=== PATIENT | female | born 1955 | race Hispanic/Latino ===

== ENCOUNTER → 2018-03-25 | Day surgery (SDC) | payer OTHER ==
[~2018-03-25] MED LIST: FENTANYL CITRATE/PF 100MCG/2 ML INJ ONE; HYOSCYAMINE SULFATE 0.5 MG/ML INJ ONE; LEXAPRO10 MG PO; MIDAZOLAM HCL 2 MG/2 ML VIAL ONE; PROPOFOL IV EMULSION 10 MG/ML 50 ML VIAL ONE; Z.0.LEXAPRO20 MG PO
--- OUTSIDE RECORDS SUMMARY | 2018-03-25 05:52 | XMS REPORT ---
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 Allergies, Adverse Reactions, Alerts This patient has no known allergies or adverse reactions. Medications This patient has no known medications.
[2018-03-25 09:13] VITALS: BP 109/79
--- NOTE | 2018-03-25 09:40 | Operative Report ---
DATE OF PROCEDURE: March 25, 2018 REFERRING PHYSICIAN: Dr. Frieda Reynolds PROCEDURE PERFORMED: Colonoscopy and polypectomy. INDICATIONS FOR COLONOSCOPY: Surveillance colonoscopy, personal history of colon polyps, right lower quadrant pain. MEDICATION: Patient was done under MAC. Please see anesthesiologist's note. PROCEDURE: With the patient in the left lateral decubitus position, the flexible fiberoptic Olympus colonoscope was inserted into the rectum with ease and advanced all the way to the cecum. Mucosa overlying the cecum appeared to be within normal limits. The ileocecal was intubated and the scope was advanced into the terminal ileum. Biopsies were obtained to rule out an inflammatory pathology potentially inducing her right lower quadrant pain. The scope was then withdrawn back into the colon. It was then withdrawn slowly. Mucosa overlying the ascending and transverse appeared to be within normal limits. Diverticular disease was noted to involve the descending and the sigmoid. One polyp was hot biopsied from the descending and 1 polyp was hot biopsied from the rectum. The scope was then retroflexed into the distal rectum and moderate size internal hemorrhoids were noted, none of which was actively bleeding. The scope was then straightened out. It was subsequently withdrawn. Patient tolerated the procedure well. IMPRESSION 1. Diverticulosis. 2. Descending colon polyp, hot biopsied. 3. Rectal polyp, hot biopsied. 4. Internal hemorrhoids, none actively bleeding. PLAN: Follow up histology. Initiate high-fiber and low-fat diet. Initiate high-fiber supplement. If terminal ileum biopsies were negative, then the patient will need a CT scan of the abdomen and pelvis. Job#: [id number] RI cc:FRIEDA REYNOLDS MD
== END | disposition home or self-care (01) ==
LOC: OR 05:50
PROVIDERS: ATTEND Internal Medicine Gastroenterology
DX: K52.9 Noninfective gastroenteritis and colitis, unspecified (principal); K63.5 Polyp of colon; K62.1 Rectal polyp; K57.30 Diverticulosis of large intestine without perforation or abscess without bleeding; K64.8 Other hemorrhoids; Z01.810 Encounter for preprocedural cardiovascular examination; F32.9 Major depressive disorder, single episode, unspecified; F41.9 Anxiety disorder, unspecified
CPT/HCPCS: 45380; 45384; 93005; J1980; J2250; 45378

== ENCOUNTER → 2019-01-12 | Outpatient (CLI) | payer OTHER ==
[~2019-01-12] MED LIST changes: +DIATRIZOATE MEGL/DIATRIZOA SOD 30 ML BTL PO ONE; -FENTANYL CITRATE/PF 100MCG/2 ML INJ ONE; -HYOSCYAMINE SULFATE 0.5 MG/ML INJ ONE; +IOPAMIDOL 370 MG/ML 200 ML INFUS..BTL INJ ONE; -MIDAZOLAM HCL 2 MG/2 ML VIAL ONE; -PROPOFOL IV EMULSION 10 MG/ML 50 ML VIAL ONE; +SODIUM CHLORIDE 0.9% 50ML 50 ML ONE
[2019-01-12 17:53] LABS: CREATININE, SERUM 1.02 mg/dL (0.57-1.11)
--- NOTE | 2019-01-13 09:04 | Diagnostic Imaging Report ---
EXAM: CT Abdomen and Pelvis WITH intravenous contrast INDICATION: Lower abdominal pain, history of diverticulitis COMPARISON: None. TECHNIQUE: Abdomen and pelvis were scanned utilizing a multidetector helical scanner from the lung base to the pubic symphysis after administration of IV contrast. Coronal and sagittal reformations were obtained. Routine protocol was performed. Scan was performed during portal venous phase. IV CONTRAST: 100mL of Isovue 370 ORAL CONTRAST: Gastrografin RADIATION DOSE: Total DLP: 271.2 mGy*cm Dose modulation, iterative reconstruction, and/or weight based adjustment of the mA/kV was utilized to reduce the radiation dose to as low as reasonably achievable. FINDINGS: LOWER THORAX: Normal. HEPATOBILIARY: Mild diffuse hepatic steatosis. No focal liver lesion. No biliary ductal dilation. Normal gallbladder. SPLEEN: No splenomegaly. PANCREAS: No focal masses or ductal dilatation. ADRENALS: No adrenal nodules. KIDNEYS/URETERS: No hydronephrosis, stones, or solid mass lesions. PELVIC ORGANS/BLADDER: Unremarkable. PERITONEUM / RETROPERITONEUM: No free air or fluid. LYMPH NODES: No lymphadenopathy. VESSELS: Unremarkable. GI TRACT: Descending and sigmoid colon diverticulosis with no CT evidence of diverticulitis. No abnormal bowel wall thickening. No bowel obstruction. Normal appendix. BONES AND SOFT TISSUES: No acute fracture or dislocation. No suspicious lytic or blastic lesions. Minimal grade 1 anterolisthesis at L4-5. IMPRESSION: Diverticulosis with no CT evidence of diverticulitis. Hepatic steatosis. Signed by: Cade Phillips MD on 01/13/2019 9:00 AM
== END ==
LOC: CT 17:05
PROVIDERS: ATTEND Internal Medicine Gastroenterology
DX: R10.32 Left lower quadrant pain (principal)
CPT/HCPCS: 36415; 74177; 82565; 84520; Q9967

== ENCOUNTER → 2019-07-20 | Outpatient (CLI) | payer OTHER ==
[~2019-07-20] MED LIST changes: -DIATRIZOATE MEGL/DIATRIZOA SOD 30 ML BTL PO ONE; -IOPAMIDOL 370 MG/ML 200 ML INFUS..BTL INJ ONE; -SODIUM CHLORIDE 0.9% 50ML 50 ML ONE
--- NOTE | 2019-07-20 14:23 | Diagnostic Imaging Report ---
EXAM: BONE MINERAL DENSITY HISTORY: Screening COMPARISON: None DISCUSSION: Evaluation of the left hip and lumbar spine was performed utilizing DEXA Hologic bone densitometer. The study is technically adequate. The patient's fracture risk is compared to an age-matched control. The patient denies prior surgery/fracture of the spine, hips or forearm. Left hip femoral neck bone mineral density: 0.700 g/cm2, T-score is -1.5, Z-score is -0.1. Left hip total bone mineral density: 0.809 g/cm2, T-score is -1.1, Z-score is -0.1. Lumbar spine total bone mineral density: 0.952 gm/cm2, T-score is -0.9, Z-score is 0.8. Impression: Bone mineralization by WHO Classification is osteopenia, the fracture risk is increased. The 10 year risk of a major osteoporotic fracture is calculated as 4.7%. Signed by: Abhi Cm MD on 07/20/2019 2:20 PM
== END ==
LOC: MAMMO 11:47
PROVIDERS: ATTEND Obstetrics & Gynecology
DX: Z12.31 Encounter for screening mammogram for malignant neoplasm of breast (principal); Z13.820 Encounter for screening for osteoporosis
CPT/HCPCS: 77067; 77080

== ENCOUNTER → 2021-04-24 | Day surgery (SDC) | payer MEDICARE ==
[2021-04-22 15:42] LABS: BASOPHILS # (AUTO) 0.1 (0.0-0.1); BASOPHILS % 0.7 % (0.0-1.0); EOSINOPHILS # (AUTO) 0.2 (0.0-0.4); EOSINOPHILS % 3.1 % (0.0-6.0); HEMATOCRIT 36.9 % (34.2-44.1); HEMOGLOBIN 12.2 g/dL (12.0-16.0); LYMPHOCYTES # (AUTO) 3.8 (1.0-3.2); LYMPHOCYTES % 49.2 % (18.0-39.1); MEAN CORPUSCULAR HEMOGLOBIN 31.2 pg (28-32); MEAN CORPUSCULAR HGB CONC 33.1 g/dL (31-35); MEAN CORPUSCULAR VOLUME 94.4 fL (81-99); MONOCYTES # (AUTO) 0.5 (0.2-0.8); MONOCYTES % 6.2 % (4.4-11.3); NEUTROPHILS # (AUTO) 3.1 (2.1-6.9); NEUTROPHILS % 40.5 % (38.7-80.0); PLATELET COUNT 273 x10e3/uL (140-360); RED BLOOD COUNT 3.91 x10e6/uL (3.6-5.1); RED CELL DISTRIBUTION WIDTH 13.6 % (11.7-14.4)
[~2021-04-24] MED LIST changes: +FENTANYL CITRATE/PF 100MCG/2 ML INJ ONE; +GLUCAGON FOR INJ 1 MG VIAL ONE; +HYOSCYAMINE SULFATE 0.5 MG/ML INJ ONE; +LIDOCAINE HCL 2% LOCAL INJ 5 ML SDV VIAL INJ ONE; +MIDAZOLAM HCL 2 MG/2 ML VIAL ONE; +PROPOFOL IV EMULSION 10 MG/ML 20 ML VIAL ONE
[2021-04-24 09:00] VITALS: BP 115/71
== END | disposition home or self-care (01) ==
LOC: OR 06:15
PROVIDERS: ATTEND Internal Medicine Gastroenterology
DX: Z09 Encounter for follow-up examination after completed treatment for conditions other than malignant neoplasm (principal); Z86.010 Personal history of colon polyps; K52.9 Noninfective gastroenteritis and colitis, unspecified; K57.30 Diverticulosis of large intestine without perforation or abscess without bleeding; K64.8 Other hemorrhoids; Z71.3 Dietary counseling and surveillance; F32.A Depression, unspecified; F41.9 Anxiety disorder, unspecified; Z01.812 Encounter for preprocedural laboratory examination; Z20.822 Contact with and (suspected) exposure to COVID-19; Z68.25 Body mass index [BMI] 25.0-25.9, adult
CPT/HCPCS: 36415; 45380; 85025; 93005; J1610; J1980; J2001; J2250; J2704; J3010; U0002; 45378

== ENCOUNTER 2021-06-25 09:58 | Observation (INO) | payer MEDICARE ==
[~2021-06-25] VITALS: Ht 160 cm; Wt 78.9 kg
[~2021-06-25 09:58] MED LIST changes: -FENTANYL CITRATE/PF 100MCG/2 ML INJ ONE; -GLUCAGON FOR INJ 1 MG VIAL ONE; -HYOSCYAMINE SULFATE 0.5 MG/ML INJ ONE; -LIDOCAINE HCL 2% LOCAL INJ 5 ML SDV VIAL INJ ONE; -MIDAZOLAM HCL 2 MG/2 ML VIAL ONE; -PROPOFOL IV EMULSION 10 MG/ML 20 ML VIAL ONE
[2021-06-25] MEDS ORDERED: TETANUS/DIPHTHERIA TOX ADULT 0.5 ML SYR IM ONE (10:30)
[2021-06-25] MEDS ORDERED: TETANUS/DIPHTHERIA TOX ADULT 0.5 ML SYR ONE (13:06)
[2021-06-25 14:43] VITALS: BP 127/59
[2021-06-25] MEDS: SODIUM CHLORIDE 0.9% 1000ML 1,000 ML IV SCH ×2 (15:18→21:47)
[2021-06-25 16:47] LABS: CREATINE KINASE MB 1.2 ng/mL (0-5.0)
[2021-06-25 18:03] VITALS: BP 127/59
[2021-06-25 18:07] VITALS: BP 127/59
[2021-06-25 20:00] VITALS: BP 114/52
[2021-06-26] VITALS (7 sets, daily range): BP systolic 97–127; BP diastolic 51–65
[2021-06-26] MEDS: SODIUM CHLORIDE 0.9% 1000ML 1,000 ML IV SCH ×2 (05:47→13:00)
[2021-06-26 07:21] LABS: CREATINE KINASE MB 0.7 ng/mL (0-5.0)
[2021-06-26] MEDS ORDERED: ACETAMINOPHEN 325 MG TAB PO PRN (07:45)
[2021-06-26 08:00] LABS: CHOL/HDL RATIO 3.2 (3.0-3.6)
[2021-06-26] MEDS: OYST-CAL-D 500MG TABLET PO SCH ×2 (09:00→15:00)
[2021-06-26] MEDS ORDERED: MULTIVITAMINS/MINERALS TAB PO SCH (09:00)
[2021-06-26] MEDS: GABAPENTIN 100 MG CAP PO SCH ×2 (09:00→15:00)
[2021-06-26 14:48] LABS: CREATINE KINASE MB 0.9 ng/mL (0-5.0)
[2021-06-26] MEDS ORDERED: SERTRALINE HCL 50 MG TAB PO SCH (17:00)
[2021-06-26] MEDS ORDERED: GABAPENTIN100 MG PO (18:07)
[2021-06-26] MEDS ORDERED: Multivitamins/Minerals PO (18:07)
[2021-06-26] MEDS ORDERED: ZOLOFT50 MG PO (18:07)
[2021-06-26] MEDS ORDERED: Calcium Carbonate PO (18:07)
== END 2021-06-26 19:30 | disposition home or self-care (01) ==
LOC: FSED 10:09 → ERHOLD 12:51 → INTOOBSV 12:51 → MED/SURG 14:43
PROVIDERS: ADMIT Internal Medicine; ATTEND Internal Medicine
DX: S02.2XXA Fracture of nasal bones, initial encounter for closed fracture (principal); S01.81XA Laceration without foreign body of other part of head, initial encounter; W18.12XA Fall from or off toilet with subsequent striking against object, initial encounter; Y93.9 Activity, unspecified; Y92.002 Bathroom of unspecified non-institutional (private) residence as the place of occurrence of the external cause; E66.9 Obesity, unspecified; Z68.30 Body mass index [BMI] 30.0-30.9, adult; S02.40CA Maxillary fracture, right side, initial encounter for closed fracture; S02.40DA Maxillary fracture, left side, initial encounter for closed fracture
CPT/HCPCS: 36415 ×2; 70450; 70486; 72125; 80053; 80061; 82550 ×2; 82553 ×2; 83036; 84484 ×2; 85025; 90471; 90714; 93005; 93306; 97161; 99284; G0378 ×2; J7030 ×2; U0002

== ENCOUNTER → 2021-12-20 | Outpatient (CLI) | payer MEDICARE ==
[~2021-12-20] MED LIST changes: +Calcium Carbonate PO; +GABAPENTIN100 MG PO; +Multivitamins/Minerals PO; +ZOLOFT50 MG PO
== END ==
LOC: MAMMO 08:40
PROVIDERS: ATTEND Internal Medicine
DX: Z12.31 Encounter for screening mammogram for malignant neoplasm of breast (principal)
CPT/HCPCS: 77067

== ENCOUNTER → 2023-12-25 | Outpatient (REF) | payer MEDICARE | LOC: MAMMO 08:58 | PROVIDERS: ATTEND Internal Medicine | DX: Z12.31 Encounter for screening mammogram for malignant neoplasm of breast (principal) | CPT/HCPCS: 77067 ==

== ENCOUNTER 2024-10-21 08:00 | Outpatient (RCR) | payer MEDICARE | END 2024-11-07 | LOC: PT 08:00 | PROVIDERS: ATTEND Family Medicine Obesity Medicine | DX: M76.891 Other specified enthesopathies of right lower limb, excluding foot (principal) ==

== ENCOUNTER 2024-12-07 17:00 | Outpatient (RCR) | payer MEDICARE | END 2024-12-08 | LOC: PT 17:00 | PROVIDERS: ATTEND Family Medicine Obesity Medicine | DX: M76.891 Other specified enthesopathies of right lower limb, excluding foot (principal) ==

== ENCOUNTER → 2024-12-30 | Outpatient (REF) | payer MEDICARE | LOC: MAMMO 14:52 | PROVIDERS: ATTEND Family Medicine Obesity Medicine | DX: Z12.31 Encounter for screening mammogram for malignant neoplasm of breast (principal) | CPT/HCPCS: 77067 ==

== ENCOUNTER 2025-01-06 07:00 | Outpatient (RCR) | payer MEDICARE | END 2025-01-08 | LOC: PT 07:00 | PROVIDERS: ATTEND Family Medicine Obesity Medicine | DX: M76.891 Other specified enthesopathies of right lower limb, excluding foot (principal) ==